=== PATIENT | male | born 1980 | race Caucasian/White ===

== ENCOUNTER 2016-12-23 11:18 | Emergency (ER) | payer SELFPAY ==
[~2016-12-23] VITALS: Ht 167.6 cm; Wt 72.6 kg
[2016-12-23 11:22] VITALS: BP 156/98
== END 2016-12-23 11:42 | disposition home or self-care (01) ==
LOC: ER 11:20
DX: T36.91XA Poisoning by unspecified systemic antibiotic, accidental (unintentional), initial encounter (principal); Z88.0 Allergy status to penicillin; Y92.89 Other specified places as the place of occurrence of the external cause; Y93.89 Activity, other specified; Y99.8 Other external cause status
CPT/HCPCS: 99283; A4606; Z7610